=== PATIENT | female | born 1955 | race Caucasian/White ===

== ENCOUNTER 2016-08-03 12:07 | Inpatient (IN) ==
[2016-08-03] MEDS ORDERED: *HR* OxyCODONE Immed Rel 5 MG TABLET PO PRN ×2 (19:01)
[2016-08-03] MEDS: Gabapentin 300 MG CAPSULE PO SCH (19:52)
[2016-08-04] MEDS ORDERED: *HR* OxyCODONE Immed Rel 5 MG TABLET PO SCH ×2
[2016-08-04] MEDS ORDERED: *HR* OxyCODONE Immed Rel 5 MG TABLET PO PRN (00:05)
[2016-08-04] MEDS: *HR* OxyCODONE Immed Rel 5 MG TABLET PO PRN ×6 (00:18→21:33)
[2016-08-04 05:47] LABS: Basophils # 0.1 K/mcL (0.0-0.2); Basophils % 0.4 %; Eosinophils # 0.2 K/mcL (0.0-0.6); Eosinophils % 1.7 %; Hematocrit 27.2 % (35.3-44.9); Immature Granulocytes % 0.8 % (0-4); Lymphocytes % 25.3 %; Mean Corpuscular HGB Conc 33.1 g/dL (31.6-35.5); Mean Corpuscular Hemoglobin 29.2 pg (28.0-33.3); Mean Corpuscular Volume 88.3 fL (83.0-100.0); Mean Platelet Volume 10.5 fL (9.4-12.4); Monocytes # 1.4 K/mcL (0.0-1.3); Monocytes % 11.4 %; Neutrophils # 7.3 K/mcL (1.6-8.9); Platelet Count 179 K/mcL (140-400); Red Blood Count 3.08 M/mcL (3.82-4.97); Red Cell Distribution Width 14.8 % (11.5-14.5); Segmented Neutrophils % 60.4 %
[2016-08-04 05:56] LABS: BUN/Creatinine Ratio 18 (6-26); Blood Urea Nitrogen 13 mg/dL (7-20); Calcium 8.5 mg/dL (8.6-10.8); Carbon Dioxide 25 mEq/L (19-29); Chloride 101 mEq/L (98-109); Glucose 160 mg/dL (70-99); Osmolality,Calculated 282 (280-300); Potassium 4.2 mEq/L (3.5-4.5); Sodium 134 mEq/L (136-145); eGFR For African Americans > 60 (> 60); eGFR For Non-African Americans > 60 (> 60)
[2016-08-04] MEDS: Gabapentin 300 MG CAPSULE PO SCH ×3 (08:30→21:32)
[2016-08-04] MEDS: Aspirin 325 MG TABLET PO SCH (08:30)
--- NOTE | 2016-08-04 13:35 | Internal Med History&Physical ---
Date of Encounter: 08/04/16 Time of Encounter: 13:33 Assessment and Plan (1) History of total left knee replacement Current visit: Yes Status: Acute Patient is here for rehabilitation due to left total knee replacement. (2) Arthritis of knee, left Current visit: No Status: Acute Reason for surgery (3) Morbid obesity Current visit: No Status: Chronic Complicating factor Qualifiers: Obesity type: unspecified obesity type Qualified Code(s): E66.01 - Morbid ( severe) obesity due to excess calories Internal Medicine - H&P: HPI Chief complaint: Status post total knee replacement for osteoarthritis. Patient already had Admitted From: Hospital to Hospital Transfer Plans for Post Hospital Care: Home History of present illness: Ms. Meyer is a 60 year old female Patient's had long-term pain and now degenerative joint disease. Past Med Surg Social Fam HX - Past Medical History Medical history: arthritis, fibromyalgia, hyperlipidemia, hypertension, RA, thyroid disease Psychiatric history: anxiety, depression - Past Surgical History Surgical History: cataract, cholecystectomy, knee replacement, other - Social History Smoking Status: Former smoker Smokeless Tobacco Status: No Alcohol use: none Drug use: none - Family History Mother Adopted: [place]: jana galicia Age: 82 Family Member Ethnicity: Non- Twin of Family Member: Yes, Fraternal Living Status: Still Living Hx Family Cardiac Disorders: Yes Hx Family Respiratory Disorders: No Hx Family Cancer: Yes Hx Family GI Disorders: No Hx Family Genitourinary Disorders: No Hx Family Endocrine Disorder: No Hx Family Musculoskeletal Disorders: No Hx Family Neuromuscular Disorders: No Hx Family Neurologic Disorders: No Hx Family HEENT Disorders: No Hx Family Autoimmune Disorders: No Hx Family Reproductive Disorders: No Hx Family Psychosocial Disorders: No Hx Family Medical Disorders: No Internal Medicine - H&P: Meds Levothyroxine [Synthroid] 50 mcg PO DAILY 10/01/14 [History] Milk Thistle 1,000 mg PO DAILY 10/01/14 [History] Gabapentin [Neurontin] 600 mg PO TID 01/25/16 [History] Lisinopril/Hydrochlorothiazide [Zestoretic 20-25 mg Tablet] 1 each PO DAILY [History] Aspirin Enteric Coated [Aspirin EC] 325 mg PO DAILY #21 tablet. 07/31/16 [Rx] OxyCODONE Immed Rel [Roxicodone 5 MG] 5 mg PO Q8H PRN #21 tablet 07/31/16 [Rx] Liraglutide [Victoza 2-Andrew] 1.8 mg SQ DAILY #0 08/01/16 [History] Oxycodone HCl 10 mg PO Q6HR PRN 08/01/16 [History] Allergies pregabalin [From Lyrica] Adverse Reaction (Verified 08/02/16 11:19) Nausea All Systems PM: A 10-system review of systems was performed and is negative for pertinent findings except as documented above in the HPI. - Constitutional Vitals: Temp Pulse Resp BP Pulse Ox 98.7 F 92 16 142/63 95 08/04/16 11:00 08/04/16 11:00 08/04/16 11:00 08/04/16 11:00 08/04/16 11:00 - Head Head exam: Present: atraumatic, normal inspection, normocephalic - Neck Neck exam general surgery: Present: supple, trachea midline. Absent: lymphadenopathy - Respiratory Respiratory exam: Present: CTAB. Absent: accessory muscle use, rales, rhonchi, wheezes - Cardiovascular Cardiovascular exam: Present: RRR, +S1, +S2. Absent: diastolic murmur, gallop, rubs, systolic murmur - GI/Abdominal GI/Abdominal exam: Present: normal bowel sounds, soft, no peritoneal signs. Absent: distended, tenderness Internal Med - H&P Results - Labs CBC & Chem 7: 08/04/16 05:30 08/04/16 05:30 Labs: Labs look stable Short CBC 08/04/16 Range/Units 05:30 WBC 12.0 H (4.3-11.1) K/mcL Hgb 9.0 L (11.5-15.4) g/dL Hct 27.2 L (35.3-44.9) % Plt Count 179 (140-400) K/mcL Neutrophils # 7.3 (1.6-8.9) K/mcL BMP 08/04/16 05:30 Sodium 134 L Potassium 4.2 Chloride 101 Carbon Dioxide 25 Labs look stable BUN 13 D Creatinine 0.73 Glucose 160 H Calcium 8.5 L
[2016-08-04] MEDS: Baclofen 10 MG TABLET PO PRN ×2 (17:35→21:33)
[2016-08-05] MEDS ORDERED: Ondansetron ODT 4 MG TAB.RAPDIS SL PRN (07:52)
[2016-08-05] MEDS: Gabapentin 300 MG CAPSULE PO SCH ×3 (08:06→21:15)
[2016-08-05] MEDS: *HR* OxyCODONE Immed Rel 5 MG TABLET PO PRN ×4 (10:23→22:54)
[2016-08-05] MEDS: Aspirin 325 MG TABLET PO SCH (10:23)
--- NOTE | 2016-08-05 12:06 | Internal Med Progress Note ---
Date of Encounter: 08/05/16 Time of Encounter: 12:04 - Assessment and plan (1) History of total knee replacement Current Visit: Yes Status: Acute Assessment and plan: PT and OT working on safety, transfer, ambulation, gait. Patient requiring large doses of pain medications. May be related to her nausea. Qualifiers: Laterality: right Qualified Code(s): Z96.651 - Presence of right artificial knee joint (2) Hypotension Current Visit: Yes Status: Acute Assessment and plan: Her lisinopril will be held off today. Her systolic blood pressure was 98and diastolic of 57. Qualifiers: Hypotension type: hypotension due to drug Qualified Code(s): I95.2 - Hypotension due to drugs - Time Spent With Patient less than 15 minutes - Subjective Interval history: Complains of significant postoperative right knee pain requiring more oral pain medication. Patient tells me that she is used to taking OxyContin for chronic back pain 4 times a day. She is nauseated. Last night she was oversedated from her pain medications. She is demanding pain medications today after her therapy. - Constitutional Vitals: Temp Pulse Resp BP Pulse Ox 98.0 F 82 18 145/82 95 08/05/16 07:21 08/05/16 07:21 08/05/16 07:21 08/05/16 10:26 08/04/16 20:00 General appearance: Present: A&O X 3, pleasant, no acute distress - Respiratory Respiratory exam: Present: CTAB. Absent: accessory muscle use, rales, rhonchi, wheezes - Cardiovascular Cardiovascular exam: Present: RRR, +S1, +S2. Absent: diastolic murmur, gallop, rubs, systolic murmur - GI/Abdominal GI/Abdominal exam: Present: normal bowel sounds, soft, no peritoneal signs. Absent: distended, tenderness - Expanded Lower Extremities Exam Knee exam: Present: ecchymosis, swelling, tenderness - Incison Incision: Present: clean and dry Internal Medicine: Result - Labs CBC & Chem 7: 08/04/16 05:30 08/04/16 05:30 Consult Discharge Plan - Plan Referrals: Atilio Casey [Primary Care Provider] -
[2016-08-05] MEDS: Baclofen 10 MG TABLET PO PRN (21:15)
[2016-08-06] MEDS: *HR* OxyCODONE Immed Rel 5 MG TABLET PO PRN ×5 (02:55→21:24)
[2016-08-06] MEDS: Aspirin 325 MG TABLET PO SCH (07:59)
[2016-08-06] MEDS: Gabapentin 300 MG CAPSULE PO SCH ×3 (08:00→20:14)
--- NOTE | 2016-08-06 09:28 | Internal Med Progress Note ---
Date of Encounter: 08/06/16 Time of Encounter: 09:26 - Assessment and plan (1) History of total knee replacement Current Visit: Yes Status: Acute Assessment and plan: PT and OT working on safety, transfer, ambulation, gait. Patient requiring large doses of pain medications. Ambien will be made when necessary only since related to sedating for her with her other pain medications and her muscle relaxant May be related to her nausea. Qualifiers: Laterality: right Qualified Code(s): Z96.651 - Presence of right artificial knee joint (2) Hypotension Current Visit: Yes Status: Acute Assessment and plan: Her lisinopril will be held off . Her systolic blood pressure up to 114. Qualifiers: Hypotension type: hypotension due to drug Qualified Code(s): I95.2 - Hypotension due to drugs - Time Spent With Patient less than 15 minutes - Subjective Interval history: Complains of significant postoperative right knee pain requiring more oral pain medication. Patient tells me that she is used to taking OxyContin for chronic back pain 4 times a day. She is nauseated. Last night she was oversedated from so Ambien will be held off.. She is demanding pain medications today after her therapy. - Constitutional Vitals: Temp Pulse Resp BP Pulse Ox 98.4 F 90 16 144/74 95 08/06/16 07:01 08/06/16 07:01 08/06/16 07:01 08/06/16 07:01 08/06/16 07:01 General appearance: Present: A&O X 3, pleasant, no acute distress - Respiratory Respiratory exam: Present: CTAB. Absent: accessory muscle use, rales, rhonchi, wheezes - Cardiovascular Cardiovascular exam: Present: RRR, +S1, +S2. Absent: diastolic murmur, gallop, rubs, systolic murmur - GI/Abdominal GI/Abdominal exam: Present: normal bowel sounds, soft, no peritoneal signs. Absent: distended, tenderness - Expanded Lower Extremities Exam Knee exam: Present: ecchymosis, swelling, tenderness Internal Medicine: Result - Labs CBC & Chem 7: 08/04/16 05:30 08/04/16 05:30 Consult Discharge Plan - Plan Referrals: Atilio Casey [Primary Care Provider] -
[2016-08-06] MEDS: Baclofen 10 MG TABLET PO PRN ×2 (14:01→20:14)
[2016-08-06] MEDS: MOM Conc 10 ML UD.LIQ PO PRN (18:23)
[2016-08-07] MEDS: *HR* OxyCODONE Immed Rel 5 MG TABLET PO PRN ×6 (03:00→23:57)
--- NOTE | 2016-08-07 08:24 | Internal Med Progress Note ---
Date of Encounter: 08/07/16 Time of Encounter: 08:22 - Assessment and plan (1) History of total left knee replacement Current Visit: Yes Status: Acute Assessment and plan: Patient's here for rehabilitation due to knee replacement (2) Arthritis of knee, left Current Visit: No Status: Acute Assessment and plan: Reason for surgery (3) Morbid obesity Current Visit: No Status: Chronic Assessment and plan: Noted and discussed Qualifiers: Obesity type: unspecified obesity type Qualified Code(s): E66.01 - Morbid ( severe) obesity due to excess calories - Time Spent With Patient less than 15 minutes - Subjective Interval history: Patient still the biggest issue otherwise doing well. She is participating in therapy - Constitutional Vitals: Temp Pulse Resp BP Pulse Ox 98.2 F 80 18 113/54 100 08/07/16 07:40 08/07/16 07:40 08/07/16 07:40 08/07/16 07:40 08/07/16 07:40 General appearance: Present: A&O X 3, pleasant, no acute distress - Head Head exam: Present: atraumatic, normocephalic - Neck Neck exam general surgery: Present: supple, trachea midline. Absent: lymphadenopathy - Respiratory Respiratory exam: Present: CTAB. Absent: accessory muscle use, rales, rhonchi, wheezes - Cardiovascular Cardiovascular exam: Present: RRR, +S1, +S2. Absent: diastolic murmur, gallop, rubs, systolic murmur Internal Medicine: Result - Labs CBC & Chem 7: 08/04/16 05:30 08/04/16 05:30 Labs: Lab was okay Consult Discharge Plan - Plan Referrals: Atilio Casey [Primary Care Provider] -
[2016-08-07] MEDS: Aspirin 325 MG TABLET PO SCH (10:17)
[2016-08-07] MEDS: Gabapentin 300 MG CAPSULE PO SCH ×3 (10:17→20:06)
[2016-08-07] MEDS: Baclofen 10 MG TABLET PO PRN ×2 (10:17→20:06)
[2016-08-07] MEDS: MOM Conc 10 ML UD.LIQ PO PRN (10:18)
[2016-08-08] MEDS: *HR* OxyCODONE Immed Rel 5 MG TABLET PO PRN ×5 (05:27→23:08)
[2016-08-08 05:41] LABS: Basophils % 0.4 %; Eosinophils # 0.2 K/mcL (0.0-0.6); Eosinophils % 2.1 %; Hematocrit 25.4 % (35.3-44.9); Hemoglobin 8.3 g/dL (11.5-15.4); Immature Granulocytes % 1.2 % (0-4); Lymphocytes # 1.8 K/mcL (0.6-4.6); Lymphocytes % 22.9 %; Mean Corpuscular HGB Conc 32.7 g/dL (31.6-35.5); Mean Corpuscular Volume 88.8 fL (83.0-100.0); Mean Platelet Volume 10.4 fL (9.4-12.4); Monocytes # 0.9 K/mcL (0.0-1.3); Platelet Count 230 K/mcL (140-400); Red Blood Count 2.86 M/mcL (3.82-4.97); Segmented Neutrophils % 62.4 %
[2016-08-08 05:52] LABS: BUN/Creatinine Ratio 17 (6-26); Blood Urea Nitrogen 13 mg/dL (7-20); Calcium 8.6 mg/dL (8.6-10.8); Carbon Dioxide 24 mEq/L (19-29); Chloride 104 mEq/L (98-109); Glucose 143 mg/dL (70-99); Osmolality,Calculated 285 (280-300); Potassium 4.5 mEq/L (3.5-4.5); Sodium 136 mEq/L (136-145); eGFR For African Americans > 60 (> 60); eGFR For Non-African Americans > 60 (> 60)
[2016-08-08] MEDS: MOM Conc 10 ML UD.LIQ PO PRN (08:26)
[2016-08-08] MEDS: Baclofen 10 MG TABLET PO PRN ×2 (08:26→23:56)
[2016-08-08] MEDS: Gabapentin 300 MG CAPSULE PO SCH ×3 (08:26→19:15)
[2016-08-08] MEDS: Aspirin 325 MG TABLET PO SCH (08:26)
--- NOTE | 2016-08-08 13:37 | Internal Med Progress Note ---
Date of Encounter: 08/08/16 Time of Encounter: 13:35 - Assessment and plan (1) History of total left knee replacement Current Visit: Yes Status: Acute Assessment and plan: Patient is here for her second total knee replacement this time on the left. (2) Arthritis of knee, left Current Visit: No Status: Acute Assessment and plan: Cause of surgery (3) Morbid obesity Current Visit: No Status: Chronic Assessment and plan: Patient is aware of her weight but states with her bad back and knees she is unable to do much physical Qualifiers: Obesity type: unspecified obesity type Qualified Code(s): E66.01 - Morbid ( severe) obesity due to excess calories - Time Spent With Patient less than 15 minutes - Subjective Interval history: Pain still the biggest issue otherwise doing well. She is participating in therapy - Constitutional Vitals: Temp Pulse Resp BP Pulse Ox 98.1 F 81 19 110/61 91 08/08/16 07:00 08/08/16 07:00 08/08/16 07:00 08/08/16 07:00 08/08/16 07:00 General appearance: Present: A&O X 3, pleasant, no acute distress - Head Head exam: Present: atraumatic, normal inspection, normocephalic - Neck Neck exam general surgery: Present: supple, trachea midline. Absent: lymphadenopathy - Respiratory Respiratory exam: Present: CTAB. Absent: accessory muscle use, rales, rhonchi, wheezes - Cardiovascular Cardiovascular exam: Present: RRR, +S1, +S2. Absent: diastolic murmur, gallop, rubs, systolic murmur Internal Medicine: Result - Labs CBC & Chem 7: 08/08/16 05:20 08/08/16 05:20 Labs: Short CBC 08/08/16 Range/Units 05:20 WBC 8.0 (4.3-11.1) K/mcL Hgb 8.3 L (11.5-15.4) g/dL Hct 25.4 L (35.3-44.9) % Plt Count 230 (140-400) K/mcL Neutrophils # 5.0 (1.6-8.9) K/mcL BMP 08/08/16 05:20 Sodium 136 Potassium 4.5 Chloride 104 Carbon Dioxide 24 BUN 13 Creatinine 0.76 Glucose 143 H Calcium 8.6 Labs stable Consult Discharge Plan - Plan Referrals: Atilio Casey [Primary Care Provider] -
[2016-08-09] MEDS: Gabapentin 300 MG CAPSULE PO SCH ×3 (08:17→20:28)
[2016-08-09] MEDS: Aspirin 325 MG TABLET PO SCH (08:17)
[2016-08-09] MEDS: *HR* OxyCODONE Immed Rel 5 MG TABLET PO PRN ×4 (08:17→20:28)
--- NOTE | 2016-08-09 12:21 | Internal Med Progress Note ---
Date of Encounter: 08/09/16 Time of Encounter: 12:19 - Assessment and plan (1) History of total knee replacement Current Visit: Yes Status: Acute Assessment and plan: PT and OT working on safety, transfer, ambulation, gait. Patient requiring large doses of pain medications. . Qualifiers: Laterality: right Qualified Code(s): Z96.651 - Presence of right artificial knee joint (2) Hypotension Current Visit: Yes Status: Acute Qualifiers: Hypotension type: hypotension due to drug Qualified Code(s): I95.2 - Hypotension due to drugs - Time Spent With Patient less than 15 minutes - Subjective Interval history: Still Complains of significant postoperative right knee pain requiring oral pain medication. Patient tells me that she is used to taking OxyContin for chronic back pain 4 times a day. She is back to taking her Ambien for insomnia. She still takes a muscle relaxant. No shortness of breath today. No chest pain. - Constitutional Vitals: Temp Pulse Resp BP Pulse Ox 98.3 F 76 15 105/59 100 08/09/16 07:00 08/09/16 07:00 08/09/16 07:00 08/09/16 07:00 08/09/16 07:00 General appearance: Present: A&O X 3, pleasant, no acute distress - Cardiovascular Cardiovascular exam: Present: RRR, +S1, +S2. Absent: diastolic murmur, gallop, rubs, systolic murmur - GI/Abdominal GI/Abdominal exam: Present: normal bowel sounds, soft, no peritoneal signs. Absent: distended, tenderness - Expanded Lower Extremities Exam Hip exam: Present: ecchymosis, tenderness Lower Leg exam: Present: swelling. Absent: palpable cord Gait: Present: observed and limited by pain Internal Medicine: Result - Labs CBC & Chem 7: 08/08/16 05:20 08/08/16 05:20 Consult Discharge Plan - Plan Referrals: Atilio Casey [Primary Care Provider] -
[2016-08-09] MEDS: Baclofen 10 MG TABLET PO PRN (23:22)
[2016-08-10] MEDS: *HR* OxyCODONE Immed Rel 5 MG TABLET PO PRN ×6 (00:24→21:58)
[2016-08-10] MEDS: Baclofen 10 MG TABLET PO PRN ×3 (04:08→21:14)
[2016-08-10] MEDS: Aspirin 325 MG TABLET PO SCH (08:10)
[2016-08-10] MEDS: Gabapentin 300 MG CAPSULE PO SCH ×3 (08:11→21:14)
--- NOTE | 2016-08-10 12:38 | Physical Med Progress Note ---
Date of Encounter: 08/10/16 Time of Encounter: 12:32 Physical Medicine-PN: Subj Interval history: PMR PCC Note Patient admitted following a right total knee arthroplasty. She complains of severe pain in her knee. Patient has very poor endurance. Patient will continue with PT. Plan for discharge to home on 08/11/16 with continued outpatient PT. - Constitutional Vitals: Vital Signs Temp Pulse Resp BP Pulse Ox 08/10/16 06:57 97.5 F L 76 18 132/78 96 08/09/16 19:00 98.8 F 84 16 151/77 98 Intake and Output 08/09/16 08/10/16 08/10/16 23:59 07:59 15:59 Intake Total 420 / 420 200 / 200 Balance 420 / 420 200 / 200 Intake: Oral 420 / 420 200 / 200 Other: Meal Breakfast Percent of Meal Consumed 100% # Voids 1 1 Blood Glucose* 168 155 Physical Medicine-PN: Obj Data - Labs CBC & Chem 7: 08/08/16 05:20 08/08/16 05:20 Labs: Laboratory Results - last 24 hr 08/09/16 08/09/16 16:31 20:04 POC Glucose 143 H 168 H Consult Discharge Plan - Plan Referrals: Atilio Casey [Primary Care Provider] -
[2016-08-11] MEDS: *HR* OxyCODONE Immed Rel 5 MG TABLET PO PRN ×4 (01:57→14:08)
[2016-08-11 07:08] VITALS: BP 132/76
[2016-08-11] MEDS: Aspirin 325 MG TABLET PO SCH (08:40)
[2016-08-11] MEDS: Baclofen 10 MG TABLET PO PRN (08:40)
[2016-08-11] MEDS: Gabapentin 300 MG CAPSULE PO SCH ×2 (08:40→14:08)
--- NOTE | 2016-08-11 13:08 | Discharge Summary ---
Date of Encounter: 08/11/16 Time of Encounter: 13:07 - Discharge Diagnosis (1) History of total left knee replacement Priority: Primary Status: Acute (2) Arthritis of knee, left Priority: Secondary Status: Acute (3) Morbid obesity Priority: Secondary Status: Chronic Qualifiers: Obesity type: unspecified obesity type Qualified Code(s): E66.01 - Morbid ( severe) obesity due to excess calories - Discharge Medications Home Medications: Levothyroxine [Synthroid] 50 mcg PO DAILY 10/01/14 [History] Milk Thistle 1,000 mg PO DAILY 10/01/14 [History] Gabapentin [Neurontin] 600 mg PO TID 01/25/16 [History] Lisinopril/Hydrochlorothiazide [Zestoretic 20-25 mg Tablet] 1 each PO DAILY [History] Aspirin Enteric Coated [Aspirin EC] 325 mg PO DAILY #21 tablet. 07/31/16 [Rx] OxyCODONE Immed Rel [Roxicodone 5 MG] 5 mg PO Q8H PRN #21 tablet 07/31/16 [Rx] Liraglutide [Victoza 2-Andrew] 1.8 mg SQ DAILY #0 08/01/16 [History] Oxycodone HCl 10 mg PO Q6HR PRN 08/01/16 [History] Allergies/Adverse Reactions: Allergies pregabalin [From Lyrica] Adverse Reaction (Verified 08/02/16 11:19) Nausea Date of admission: 08/03/16 18:28 Primary care physician: Atilio Casey Consults: 08/03/16 18:54 Consult to Occupational Therapy [CONS] Routine Comment: Evaluate, develop and implement POC Reason for Consult: Right TKR Consult to Physical Therapy [CONS] Routine Comment: Evaluate, develop and implement POC Reason for Consult: Right TKR Consult to Recreational Therapy [CONS] Routine Comment: Evaluate, develop and implement POC 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 [CONS] Routine Reason for SW Consult: Right TKR Consult to Speech Therapy [CONS] Routine Comment: Evaluate, develop and implement POC Reason for Consult: speech impairment Call Completed: Yes 08/09/16 14:49 Consult to Psychology [CONS] Routine Consulting Provider: Mirlande Sherman Reason for Consult: therapy request Time Notified: 14:50 Call Completed: Yes Discharging clinician: Fili Jean Anticipated date of discharge: 08/11/16 - Patient Status Disposition: Home, Self-Care Condition: Good Functional capacity at discharge: uses cane/walker Overall status at discharge: patient is progressing back to baseline - Discharge Instructions Follow Up With: Atilio Casey [Primary Care Provider] - - Diet and Activity Activity: ambulate only with your walker Diet: advance to your usual diet Hospital course: Ms. Meyer is a 60 year old female - Time Spent with Patient Total time spent providing and/or coordinating discharge services: Less than 30 minutes - Constitutional Vitals: Temp Pulse Resp BP Pulse Ox 98.0 F 75 16 132/76 97 08/11/16 07:07 08/11/16 07:07 08/11/16 07:07 08/11/16 07:07 08/11/16 07:07 General appearance: Present: A&O X 3, pleasant, no acute distress - Head Head exam: Present: atraumatic, normal inspection, normocephalic - Neck Neck exam general surgery: Present: supple, trachea midline. Absent: lymphadenopathy - Respiratory Respiratory exam: Present: CTAB. Absent: accessory muscle use, rales, rhonchi, wheezes - Cardiovascular Cardiovascular exam: Present: RRR, +S1, +S2. Absent: diastolic murmur, gallop, rubs, systolic murmur - Expanded Lower Extremities Exam Knee exam: Present: swelling, tenderness (Dressings clean and dry)
== END 2016-08-11 17:50 | disposition home or self-care (01) | DRG 560 ==
LOC: INPGRE 18:28
PROVIDERS: ADMIT Internal Medicine; ATTEND Internal Medicine